=== PATIENT | male | born 1990 ===

== ENCOUNTER 2024-12-24 11:48 | Outpatient (AMB) | payer BC, SELFPAY ==
--- NOTE | 2024-12-24 11:52 | MHC.OFFVIS ---
Intake Visit Reasons: 6 month F/u Allergies No Known Allergies Allergy (Verified 12/24/24 11:54) Medication List - Last Reconciled 12/24/24 by Lola Arreola CNP dextroamphetamine-amphetamine 20 mg ER (Adderall XR) 1 cap PO DAILY lorazepam 0.5 mg PO DAILY PRN propranolol ER 160 mg PO DAILY 90 days rimegepant (Nurtec ODT) 75 mg PO DAILY PRN sumatriptan succinate 100 mg PO DIRECTED tamsulosin mg PO topiramate 50 mg PO BID 90 days zolmitriptan mg PO HPI Comments Details: He was doing okay. Migraines were okay, usually about 4x/month. Sumatriptan as needed helped most of time. He used Nurtec if that did not work and then zolmitriptan as last option. Triggers included weather changes, rainy or humid weather, and certain smells. Sleep was okay.? He has a long history of migraines without aura. Rainy weather and humidity may trigger. There is no aura. He gets a right-sided headache with pressure and photophobia and nausea. Family history of migraine in his mother. [facility] Family History (Updated 12/24/24 @ 11:55 by Lola Arreola CNP) Mother Migraine Review of Systems Const Denies chills, Denies daytime sleepiness, Denies difficulty sleeping, Denies fatigue, Denies fever(s), Denies frequent falls, Reports headache(s), Denies increased appetite, Denies poor appetite, Denies snoring, Denies weakness, Denies weight gain and Denies weight loss Eyes Denies loss of vision ENT Denies vertigo, Denies dizziness, Reports headache(s) and Denies neck pain Card Denies chest pain at rest, Denies chest pain with activity, Denies syncope, Denies leg edema, Denies palpitations, Denies dyspnea and Denies dyspnea on exertion Resp Denies cough, Denies dyspnea, Denies dyspnea on exertion and Denies snoring GI Denies abdominal pain, Denies constipation, Denies heartburn, Denies diarrhea and Denies nausea Denies urinary frequency, Denies urinary incontinence and Denies urinary urgency Musc Denies abnormal gait, Denies back pain, Denies myalgias, Denies arthralgias, Denies neck pain, Denies numbness and Denies tingling Neuro Denies abnormal gait, Denies vertigo, Denies dizziness, Denies syncope, Denies frequent falls, Reports headache(s), Denies lack of coordination, Denies loss of vision, Denies memory loss, Denies numbness, Denies Other visual disturbances, Denies restless legs, Denies seizure-like activity, Denies tingling, Denies paresthesias, Denies tremor(s) and Denies weakness Psych Denies anxiety, Denies depression, Denies auditory hallucinations, Denies memory loss and Denies visual hallucinations Endo Denies fatigue and Denies palpitations Physical Exam Const Other: General Appearance:? normal, in no acute distress. Heart:? S1, S2 normal, no murmurs. Lungs:? clear anteriorly and posteriorly. Musculoskeletal:? normal. Extremities:? no edema. Psych:? alert, oriented, cognitive function intact, cooperative with exam. Neuro Other: Abnormal Neurological Findings:?none.? Mental Status: alert and oriented X 3. Normal attention, orientation, memory, and affect. Cranial Nerves: Pupils are equal, round, and reactive to light. External ocular muscles are intact. Visual howard are full, no ptosis. Face is symmetrical, no facial weakness or droop. Facial sensations are normal. Tongue protrudes in midline. Palate elevates symmetrically. Shoulder shrugging is normal Motor Examination: Normal muscle tone, bulk and strength. No atrophy or fasciculations. No drift of the extended upper extremities. DTR 2+. Plantars are flexor. Sensory Exam: Normal light touch, temperature, pinprick, vibration, and joint-position sensations. Rhomberg sign is absent. Coordination: No ataxia. No titubation. Gait Exam: Within normal limits. Cerebellar Signs: Sycgzg-[id number]-lwlg and ugta-uv-thct is normal. No dysdiadochokinesia. Extrapyramidal System: No tremor, rigidity with normal facial expressions. No bradykinesia. No bradyphrenia. Normal arm swing and posture. No propulsion or retropulsion. Speech: Normal. No dysphasia or dysarthria. Assessment & Plan Assessment & Plan (1) Migraine: Code(s): G43.909 - Migraine, unspecified, not intractable, without status migrainosus Category: Medical Qualifiers: Intractability: not intractable Migraine type: unspecified Status migrainosus presence: without status migrainosus Qualified Code(s): G43.909 - Migraine, unspecified, not intractable, without status migrainosus Plan: Continue topiramate 50mg 1 tablet twice a day. Continue propranolol ER 160mg 1 capsule daily. Continue sumatriptan 100mg 1 tablet as needed for migraines. Continue Nurtec 75mg 1 tablet as needed for migraines. Continue zolmitriptan 5mg 1 tablet as needed for migraines. (2) ADD (attention deficit disorder): Code(s): F98.8 - Other specified behavioral and emotional disorders with onset usually occurring in childhood and adolescence Category: Medical Qualifiers: Attention deficit type: unspecified type Qualified Code(s): F98.8 - Other specified behavioral and emotional disorders with onset usually occurring in childhood and adolescence Plan . Medications: New rimegepant (Nurtec ODT) 75 mg PO DAILY PRN 8 tabs 5RF migraine 30 days zolmitriptan take 1 tab at onset of headache; if no relief, may repeat 1 tab after at least 2 hrs; max = 2 tabs/24 hrs PO 10 tabs 5RF 30 days Discontinued zolmitriptan Discontinued Reason: Order PO Coding Level of Care Code Est Pt Level 4 (11907) Diagnoses Migraine without status migrainosus, not intractable, unspecified migraine type G43.909 Intractability: not intractable Migraine type: unspecified Status migrainosus presence: without status migrainosus Attention deficit disorder, unspecified type F98.8 Attention deficit type: unspecified type
--- OUTSIDE RECORDS SUMMARY | 2024-12-24 14:39 | XMS_ITS | Clinical Summary ---
Author Organization [facility] ity Address [address] [place] [address] Care Team Providers Care Manager Business Management Name Role Phone Leif Schwartz MD Primary Care Provider [phone] Medical History Medical History Date Comments Migraines DX:Migraines Kidney stone DX:Kidney stone Family History Medical History Relation Name Comments Kidney disease Mother Relation Name Status Comments Mother Social History Tobacco Use Types Packs/Day Years Used Date Smoking Tobacco: Never Smokeless Tobacco: Never Alcohol Use Standard Drinks/Week Comments Yes 0 (1 standard drink = 0.6 oz pur e alcohol) Sex and Gender Information Value Date Recorded Sex Assigned at Not on file Legal Sex Male 11:37 AM EST Gender Identity Not on file Sexual Orientation Not on file Obstetrics History Last Filed Vital Signs Vital Sign Reading Time Taken Comments Blood Pressure - - Pulse - - Temperature - - Respiratory Rate - - Oxygen Saturation - - Inhaled Oxygen Concentration - - Weight 68 kg (150 lb) 11/02/2023 2:48 PM EDT Height 167.6 cm (5' 6 ) 11/02/2023 2:48 PM EDT Body Mass Index 24.21 11/02/2023 2:48 PM EDT Plan of Treatment Health Maintenance Due Date Last Done Comments DTaP,Tdap,and Td Vaccines (1 - Tdap) 2008 Hepatitis B Vaccines (1 of 3 - 19+ 3-dose series) 2008 HIV Screening 03/01/2022 Hepatitis C Screening 03/01/2022 Social Influencers of Health Screening 03/01/2022 Cholesterol Screening (Lipid Panel) 08/17/2023 08/16/2018 Depression Screening 04/03/2024 COVID-19 Vaccine (1 - 2023-2 5 season) 2024 Influenza Vaccine (#1) 2024 HIB Vaccines Aged Out No longer eligi ble based on patient's age to complete this topic HPV Vaccines Aged Out No longer eligi ble based on patient's age to complete this topic Hepatitis A Vaccines Aged Out No long er eligible based on patient's age to complete this topic IPV Vaccines Aged Out No longer eligi ble based on patient's age to complete this topic MMR Vaccines Aged Out No longer eligi ble based on patient's age to complete this topic Meningococcal ACWY Vaccine Aged Out N o longer eligible based on patient's age to complete this topic Meningococcal B Vaccine Aged Out No l onger eligible based on patient's age to complete this topic Pneumococcal Vaccine: Pediat rics (0 to 5 Years) and At-Risk Patients (6 to 49 Years) Aged Out No longer eligi ble based on patient's age to complete this topic RSV Immunization Patients Un kurt 20 months Aged Out No longer eligible b ased on patient's age to complete this topic Varicella Vaccines Aged Out No longer eligible based on patient's age to complete this topic Care Teams Manager Business Management Relationship Specialty Start Date End Date Leif Schwartz MD PCP - General 10/26/23
--- OUTSIDE RECORDS SUMMARY | 2024-12-24 14:39 | XMS_ITS | Clinical Summary ---
Author Organization [facility] Address [address] [place] [address] Care Team Providers Care Manufacturing Plant Controller Name Role Phone Pcp, No Primary Care Provider Unavailabl e Allergies No known active allergies Medications propranolol (INDERAL LA) 120 MG 24 hr capsule Take by mouth daily. 08/07/2020 Active SUMAtriptan (IMITREX) 100 MG tablet Take 100 mg by mouth 2 (two) times a day as needed. 06/15/2020 Active doxycycline (VIBRA-TABS) 100 MG tablet 09/02/2020 Active amphetamine-dext roamphetamine (ADDERALL XR) 20 MG 24 hr capsule 07/14/2020 Ac tive Social History Tobacco Use Types Packs/Day Years Used Date Smoking Tobacco: Never Assessed Sex and Gender Information Value Date Recorded Sex Assigned at Not on file Legal Sex Male 9:23 AM EDT Gender Identity Not on file Sexual Orientation Not on file Last Filed Vital Signs Vital Sign Reading Time Taken Comments Blood Pressure - - Pulse 84 10/08/2020 12:30 PM EDT Temperature 36.8 C (98.3 F) 10/08/2020 12:30 PM EDT Respiratory Rate - - Oxygen Saturation 99% 10/08/2020 12:30 PM EDT Inhaled Oxygen Concentration - - Weight 63.5 kg (140 lb) 10/08/2020 12:30 PM EDT Height 167.6 cm (5' 6 ) 10/08/2020 12:30 PM EDT Body Mass Index 22.6 10/08/2020 12:30 PM EDT Plan of Treatment Health Maintenance Due Date Last Done Comments Hepatitis C Virus Screening 1989 HIV Screening 2002 DTaP/Tdap/Td Vaccines (1 - Tdap) 2008 Hepatitis B Vaccines (1 of 3 - 19+ 3-dose series) 2008 HPV Vaccines (1 - 3-dose SCD M series) 2016 Influenza Vaccine 11/01/2024 COVID-19 Vaccine (2 - 2024-2 6 season) 2024 08/12/2020 Pneumococcal Vaccine: Pediat janae (0-5 Years) and At-Risk Patients (6 to 49 Years) Aged Out No longer eligible b ased on patient's age to complete this topic Insurance [facility] - [facility] [place] [phone] Care Teams Manufacturing Plant Controller Relationship Specialty Start Date End Date Pcp, No PCP - General General Medicine 09/03/20
--- OUTSIDE RECORDS SUMMARY | 2024-12-24 14:39 | XMS_ITS ---
Author Name [facility] Organization Unknown Results Test Name/Text Value Interpretation Date Range Source Ketones Ur Ql Strip.auto NEGATIVE Normal 10/27/2023 - [facility] pH Ur Strip.auto 8.0 Normal 10/27/2023 4.5 - 8 [facility] Nitrite Ur Ql Strip.auto NEGATIVE Normal 10/27/2023 - [facility] Hgb Ur Ql Strip.auto SMALL Abnormal 10/27/2023 - [facility] Sp Gr Ur Strip.auto 1.035 Above high normal 1.005 - 1.03 [facility] RBC number/area UrnS Auto 4.0 /HPF Above high normal 10/27/2023 0 - 3 [facility] Glucose Ur Ql Strip.auto NEGATIVE Normal 10/27/2023 - [facility] Clarity Ur Refract.auto CLEAR Normal 10/27/2023 [facility] WBC number/area UrnS Auto <1 Normal 10/27/2023 0 - 5 [facility] Leukocyte esterase Ur Ql Strip.auto NEGATIVE Normal 10/27/2023 - [facility] Prot Ur Ql Strip.auto NEGATIVE Normal 10/27/2023 - [facility] Color Ur Auto STRAW Normal 10/27/2023 [facility] OTF Squamous number/area UrnS Auto 0.0 /LFP Normal 10/27/2023 0 - 5 [facility] Mucous Threads Ur Ql Auto PRESENT Abnormal 10/27/2023 - [facility] SPECIMEN SOURCE XXX URINE CLEAN CATCH Normal 10/27/2023 [facility] AST SERPL CCNC 17.0 U/L Normal 10/27/2023 5 - 40 [facility] ALT SERPL [facility] 18.0 U/L Normal 10/27/2023 7 - 52 [facility] LDH SERPL L TO P CCNC 179.0 U/L Normal 10/27/2023 125 - 220 [facility] ALP SERPL-CCNC 41.0 U/L Normal 10/27/2023 34 - 104 [facility] LIPASE SERPL CCNC 10.0 U/L Below low normal 10/27/2023 11 - 82 [facility] BILIRUB DIRECT SERPL MCNC 0.2 mg/dL Normal 10/27/2023 0 - 0.2 [facility] BILIRUB SERPL MCNC 1.7 mg/dL Above high normal 10/27/2023 0. 3 - 1 [facility] MONOCYTES NO. BLD AUTO 1.0 K/uL Above high normal 10/27/2023 0 - 0.8 [facility] LYMPHOCYTES NFR BLD AUTO 11.6 % Below low normal 10/27/2023 20 - 48 [facility] NEUTROPHILS NO. BLD AUTO 14.1 K/uL Above high normal 10/27/2023 1.8 - 7.8 [facility] DIFFERENTIAL TYPE AUTOMATED Normal 10/27/2023 C [facility] RDW RBC AUTO RTO 13.9 % Normal 10/27/2023 12.1 - 17.7 [facility] PMV BLD AUTO 8.8 fL Normal 10/27/2023 7.4 - 11.4 [facility] OTF MONOCYTES NFR BLD AUTO 5.9 % Normal 10/27/2023 2 - 12 [facility] MCHC RBC AUTO MCNC 35.3 g/dL Normal 10/27/2023 32 - 36 [facility] PLATELET NO. BLD AUTO 354.0 K/uL Normal 10/27/2023 150 - 450 [facility] LYMPHOCYTES NO. BLD AUTO 2.0 K/uL Normal 10/27/2023 1 - 3.2 [facility] EOSINOPHIL NFR BLD AUTO 1.6 % Normal 10/27/2023 0 - 6 [facility] NEUTROPHILS NFR BLD AUTO 80.7 % Above high normal 10/27/2023 44 - 74 [facility] WBC NO. BLD AUTO 17.4 K/uL Above high normal 10/27/2023 4 - 10.5 [facility] MCV RBC AUTO 87.5 fL Normal 10/27/2023 78 - 100 [facility] HGB BLD MCNC 14.5 g/dL Normal 10/27/2023 13.5 - 18 [facility] EOSINOPHIL NO. BLD AUTO 0.3 K/uL Normal 10/27/2023 0 - 0.5 [facility] BASOPHILS IN BLOOD BY AUTOMATED COUNT 0.0 K/uL Normal 10/27/2023 0 - 0.2 [facility] RBC NO. BLD AUTO 4.68 M/uL Below low normal 10/27/2023 4.7 - 6 [facility] HCT VFR BLD AUTO 41.0 % Normal 10/27/2023 40 - 54 [facility] MCH RBC QN AUTO 30.9 pg Normal 10/27/2023 25 - 33 [facility] BASOPHILS NFR BLD AUTO 0.2 % Normal 10/27/2023 0 - 2 [facility] ANION GAP SERPL SCNC 9.0 mmol/L Normal 10/27/2023 5 - 14 [facility] GLUCOSE SERPL MCNC 121.0 mg/dL Normal 10/27/2023 70 - 199 [facility] CREAT SERPL MCNC 1.5 mg/dL Above high normal 10/27/2023 0.7 - 1.3 [facility] CALCIUM SERPL MCNC 10.3 mg/dL Above high normal 10/27/2023 8 .4 - 10.2 [facility] CHLORIDE SERPL SCNC 108.0 mmol/L Above high normal 98 - 107 [facility] BUN SERPL MCNC 13.0 mg/dL Normal 10/27/2023 9 - 20 [facility] SODIUM SERPL SCNC 141.0 mmol/L Normal 10/27/2023 135 - 14 5 [facility] POTASSIUM SERPL SCNC 3.8 mmol/L Normal 10/27/2023 3.5 - 5.1 [facility] Glomerular filtration rate/1.73 sq M. predicted 62.0 Normal 10/27/2023 60 - [facility] HCO3 SER SCNC 24.0 mmol/L Normal 10/27/2023 24 - 32 [facility] AMYLASE SERPL CCNC 50.0 U/L Normal 10/27/2023 29 - 103 [facility] History of Medication Use Medication Directions Dispensed Refills Start Date End Date Stat tamsulosin 0.4 mg capsule Take 1 capsule (0.4 mg total) by mouth daily. 09/11/2024 active morphine 15 mg immediate release tablet Take 0.5 tablets (7.5 mg total) by mouth every 8 (eight) hours as needed for pain. 10/27/2023 active ondansetron 4 mg disintegrating tablet Take 1 tablet (4 mg total) by mouth every 8 (eight) hours as needed for nausea. 10/27/2023 active ondansetron (ZOFRAN-ODT) 4 MG disintegrating tablet Take 1 tablet (4 mg total) by mouth every 8 (eight) hours as needed for nausea. 10/27/2023 active propranolol ER 120 mg capsule,24 hr,extended release Take by mouth. 08/07/2020 active dextroamphetamine-amph etamine ER 20 mg 24hr capsule,extend release 07/14/2020 ac tive sumatriptan 100 mg tablet Take 1 tablet (100 mg total) by mouth 2 (two) times a day as needed. 06/15/2020 active Problems Problem Status Onset Date Problem Type Date of Resolution Source Kidney stone active 2024-12-17 ProblemAct ENS_P HCCT Benign prostatic hyperplasia with outflow obstruction active 2024-09-11 ProblemAct ENS_PHCCT Renal colic on right side active EncounterDiagnosisAct [facility] Encounters Encounter Type Encounter Reason Primary Diagnosis Location Date Ambulatory [facility] 12[facility]17/2024 [facility] 12/17/2024 [facility] 12/17/2024 [facility] 12/17/2024 [facility] 12/16/2024 [facility] 12/14/2024 Emergency Unspecified renal colic Unspecified renal colic [facility] 10/26/2023 Care Team Organization Name Specialty Phone Email Start Date End Da te [facility] 12/14/2024 [facility] 4 10/15/2024 [facility] 10/27/2023 [facility]
--- OUTSIDE RECORDS SUMMARY | 2024-12-24 14:39 | XMS_ITS | Clinical Summary ---
Author Organization [facility] Address [address] [place] [address] Care Team Providers Care Warehouse Distribution Associate Name Role Phone Leif Schwartz MD Primary Care Provider Unava ilable Allergies No known active allergies Medications Medication Sig Dispensed Refills Start Date End Date Status amphetamine-dextroamph etamine (ADDERALL XR) 20 MG 24 hr capsule 0 07/14/2020 Activ e propranolol (INDERAL LA) 120 MG 24 hr capsule Take by mouth. 0 08/07/2020 Active SUMAtriptan (IMITREX) 100 MG tablet Take 1 tablet (100 mg total) by mouth 2 (two) times a day as needed. 0 06/15/2020 Active ondansetron (ZOFRAN-ODT) 4 MG disintegrating tablet Take 1 tablet (4 mg total) by mouth every 8 (eight) hours as needed for nausea. 7 tablet 0 10/27/2023 Active morphine (MSIR) 15 MG tablet Take 0.5 tablets (7.5 mg total) by mouth every 8 (eight) hours as needed for pain. 5 tablet 0 10/27/2023 Active tamsulosin (FLOMAX) 0.4 MG CAPS Take 1 capsule (0.4 mg total) by mouth daily. 30 capsule 0 11/02/2023 Active Active Problems No known active problems Family History Medical History Relation Name Comments Kidney disease Mother Relation Name Status Comments Mother Social History Tobacco Use Types Packs/Day Years Used Date Smoking Tobacco: Never Smokeless Tobacco: Never Tobacco Cessation:Counseling Given: Not Answered Alcohol Use Standard Drinks/Week Comments Yes 0 (1 standard drink = 0.6 oz pur e alcohol) occasional Sex and Gender Information Value Date Recorded Sex Assigned at Male 10/27/2023 1:03 AM EDT Gender Identity Not on file Sexual Orientation Not on file Job Start Date Occupation Industry Not on file Not on file Not on file Last Filed Vital Signs Vital Sign Reading Time Taken Comments Blood Pressure 121/79 10/27/2023 3:24 AM EDT Pulse 91 10/27/2023 3:24 AM EDT Temperature 36.8 C (98.3 F) 10/27/2023 3:24 AM EDT Respiratory Rate 16 10/27/2023 3:24 AM EDT Oxygen Saturation 98% 10/27/2023 3:24 AM EDT Inhaled Oxygen Concentration - - Weight 68 kg (150 lb) 11/02/2023 2:48 PM EDT Height 167.6 cm (5' 6 ) 11/02/2023 2:48 PM EDT Body Mass Index 24.21 11/02/2023 2:48 PM EDT Plan of Treatment Health Maintenance Due Date Last Done Comments Hepatitis B Vaccines (1 of 3 - 3-dose series) 1989 Hepatitis C Screening 1989 Depression Screening 2001 BMI Counseling 2007 Preventative Health Evaluation 2007 DTap / Tdap / Td (1 - Tdap) 2008 COVID-19 Vaccine (2 - 2024-2 6 season) 2024 08/12/2020 Influenza Vaccine (#1) 2024 Pneumococcal Vaccine Aged Out No long er eligible based on patient's age to complete this topic RSV Ped < 20 months Aged Out No longe r eligible based on patient's age to complete this topic Care Teams Warehouse Distribution Associate Relationship Specialty Start Date End Date Leif Schwartz MD PCP - General Family Medicine 10/26/23
== END 2024-12-24 12:11 | disposition home or self-care (01) ==
LOC: HO.HSM 11:49
PROVIDERS: PCP Family Medicine; Visit Provider Registered Nurse
DX: G43.909 Migraine, unspecified, not intractable, without status migrainosus (principal); F98.8 Other specified behavioral and emotional disorders with onset usually occurring in childhood and adolescence
CPT/HCPCS: 99214